=== PATIENT | male | born 1960 | race African-American/Black ===

== ENCOUNTER 2019-03-06 12:45 | Emergency (ER) | payer OTHER ==
[~2019-03-06] VITALS: Ht 172.7 cm; Wt 79.4 kg
[2019-03-06 18:05] VITALS: BP 100/68
== END 2019-03-06 18:20 | disposition still patient (30) ==
LOC: ER 12:45
DX: F10.129 Alcohol abuse with intoxication, unspecified (principal); Y90.9 Presence of alcohol in blood, level not specified

== ENCOUNTER 2019-06-18 23:04 | Emergency (ER) | payer OTHER ==
[~2019-06-18] VITALS: Ht 180.3 cm; Wt 81.7 kg
[2019-06-19 05:52] VITALS: BP 102/72
== END 2019-06-19 05:53 | disposition home or self-care (01) ==
LOC: ER 23:04
DX: F10.129 Alcohol abuse with intoxication, unspecified (principal)